=== PATIENT | male | born 1950 | race Caucasian/White ===

== ENCOUNTER 2016-12-30 16:24 | Emergency (ER) | payer OTHER ==
[~2016-12-30] VITALS: Ht 185.4 cm; Wt 156.5 kg
[~2016-12-30 16:24] MED LIST: ASPI325T4 PO; BENA40TA2 PO; CARV25TA2 PO; CELE200C PO; COLE625T2 PO; DILT180C2 PO; ERGO500012 PO; ERGO50002 PO; ESOM40CA PO; EZET1TAB4 PO; FENO145T PO; GLIM4TAB2 PO; HYDR25TA9 PO; ISOS30TA4 PO; LORA10TA68 PO; METF-620 PO; NIAC1000 PO; OMEG1CAP38 PO; OMEP20TA PO; PREG150C PO; SITA100T PO
[2016-12-30] MEDS ORDERED: IV NORMAL SALINE 1000ML BAG 1,000 ML IV ONE (16:45)
[2016-12-30 16:49] LABS: BASO # 0.1 x10^3/uL (0.0-0.2); BASO % 1 % (0-3); EOS % 4 % (0-3); HEMATOCRIT 37.8 % (39.0-53.0); HEMOGLOBIN 12.7 g/dL (13.0-17.5); LYMPH # 1.8 x10^3/uL (1.0-4.8); LYMPH % 25 % (24-48); MEAN CORPUSCULAR HEMOGLOBIN 29 pg (25-35); MEAN CORPUSCULAR HGB CONC 34 g/dL (31-37); MEAN CORPUSCULAR VOLUME 85 fL (79-100); MONO % 14 % (0-9); NEUT % 56 % (31-73); PLATELET COUNT 219 x10^3/uL (140-400); RED BLOOD COUNT 4.46 x10^6/uL (4.30-5.70); RED CELL DISTRIBUTION WIDTH 15.6 % (11.5-14.5); WHITE BLOOD COUNT 7.1 x10^3/uL (4.0-11.0)
--- NOTE | 2016-12-30 16:52 | PHYS DOC ---
Past Medical History Past Medical History: A-Fib, Diabetes-Type II, GERD, High Cholesterol, Hypertension Past Surgical History: Other Additional Past Surgical Histo: CARDIAC ABLASION Alcohol Use: Heavy Drug Use: None Adult General Chief Complaint Chief Complaint: LOWER EXTREMITY SWELLING [facility] HPI Patient is a 66 year old male who presents with right lower extremity cellulitis and swelling. Patient had a history of right lower extremity cellulitis. Patient has described low-grade temps for the past 2 days. Patient denies any nausea or vomiting. Patient denies any history of blood clots. Patient is diabetic. Patient denies any numbness or tingling to the right lower family. She has no other complaints. Pertinent physical exam findings: Right lower extremity: Erythema and +2 pitting edema and swelling with positive dorsal pedis pulse ED Course: CBC, CMP, BC, Lactic acid 1827: Patient reevaluated and discussed lab results of the patient's who states that he gets cellulitis very often of his lower extremity secondary to swelling and this time came in early to initiate treatment. Patient states he would like to go home and does not want admitted to the hospital. Patient states Keimelda has worked from the past. Patient will follow up with PCP. Patient understands all risks of going home including and disability. Strict return precautions were given to the patient. ED decision making: After reviewing the chart, CC/HPI/PMH, PE, Lab results I do not with the patient is septic from the possible infection on the right lower extremity. I do not know if his erythema and swelling is diffuse cellulitis or stasis dermatitis however given the patient's significant history of cellulitis to that leg will go ahead and start the patient on antibiotics. Recommend short- term follow-up with PCP in one to 2 days. Patient is comfortable going home. Understands all risks of going home. Additional verbal discharge instructions were provided to the patient and that if symptoms get worse or any new symptoms arise that are worrisome to the patient he is to return to emergency room immediately. Review of Systems Review of Systems Constitutional: Denies fever or chills [] Eyes: Denies change in visual acuity, redness, or eye pain [] HENT: Denies nasal congestion or sore throat [] Respiratory: Denies cough or shortness of breath [] Cardiovascular: No additional information not addressed in HPI [] GI: Denies abdominal pain, nausea, vomiting, bloody stools or diarrhea [] : Denies dysuria or hematuria [] Musculoskeletal: Denies back pain or joint pain [] Integument: Cellulitis the right lower extremity Neurologic: Denies headache, focal weakness or sensory changes [] Current Medications Current Medications Current Medications Medications (Trade) Dose Ordered Sig/Nayeli Start Time Stop Time Status Last Admin Dose Admin Sodium Chloride 1,000 ml @ 1,000 mls/hr 1X ONCE 12/30/16 16:45 12/30/16 17:44 DC 12/30/16 16:42 1,000 MLS/HR Allergies Allergies Allergies Coded Allergies Type Severity Reaction Last Updated Verified No Known Drug Allergies 08/09/14 No Physical Exam Physical Exam Constitutional: Well developed, well nourished, no acute distress, non-toxic appearance. [] HENT: Normocephalic, atraumatic, bilateral external ears normal, oropharynx moist, no oral exudates, nose normal. [] Eyes: PERRLA, EOMI, conjunctiva normal, no discharge. [] Neck: Normal range of motion, no tenderness, supple, no stridor. [] Cardiovascular:Heart rate regular rhythm, no murmur [] Lungs & Thorax: Bilateral breath sounds clear to auscultation [] Abdomen: Bowel sounds normal, soft, no tenderness, no masses, no pulsatile masses. [] Skin: Erythema and warmth to the right lower extremities with +2 pitting edema. Patient's good dorsal pedis pulse on the right. Back: No tenderness, no CVA tenderness. [] Extremities: No tenderness, no cyanosis, no clubbing, ROM intact, no edema. [] Neurologic: Alert and oriented X 3, Psychologic: Affect normal, judgement normal, mood normal. [] Current Patient Data Vital Signs Vital Signs Date Time Temp Pulse Resp B/P (MAP) Pulse Ox O2 Delivery O2 Flow Rate FiO2 12/30/16 17:39 56 21 159/77 (104) 97 Room Air 12/30/16 16:46 98.3 98.3 Lab Values Laboratory Tests Test 12/30/16 16:40 White Blood Count 7.1 x10^3/uL (4.0-11.0) Red Blood Count 4.46 x10^6/uL (4.30-5.70) Hemoglobin 12.7 g/dL (13.0-17.5) L Hematocrit 37.8 % (39.0-53.0) L Mean Corpuscular Volume 85 fL (79-100) Mean Corpuscular Hemoglobin 29 pg (25-35) Mean Corpuscular Hemoglobin Concent 34 g/dL (31-37) Red Cell Distribution Width 15.6 % (11.5-14.5) H Platelet Count 219 x10^3/uL (140-400) Neutrophils (%) (Auto) 56 % (31-73) Lymphocytes (%) (Auto) 25 % (24-48) Monocytes (%) (Auto) 14 % (0-9) H Eosinophils (%) (Auto) 4 % (0-3) H Basophils (%) (Auto) 1 % (0-3) Neutrophils # (Auto) 4.0 x10^3uL (1.8-7.7) Lymphocytes # (Auto) 1.8 x10^3/uL (1.0-4.8) Monocytes # (Auto) 1.0 x10^3/uL (0.0-1.1) Eosinophils # (Auto) 0.3 x10^3/uL (0.0-0.7) Basophils # (Auto) 0.1 x10^3/uL (0.0-0.2) Sodium Level 141 mmol/L (136-145) Potassium Level 3.8 mmol/L (3.5-5.1) Chloride Level 106 mmol/L (98-107) Carbon Dioxide Level 29 mmol/L (21-32) Anion Gap 6 (6-14) Blood Urea Nitrogen 20 mg/dL (8-26) Creatinine 1.1 mg/dL (0.7-1.3) Estimated GFR (Cockcroft-Gault) 67.2 BUN/Creatinine Ratio 18 (6-20) Glucose Level 102 mg/dL (70-99) H Lactic Acid Level 1.3 mmol/L (0.4-2.0) Calcium Level 9.1 mg/dL (8.5-10.1) Total Bilirubin 0.5 mg/dL (0.2-1.0) Aspartate Amino Transferase (AST) 15 U/L (15-37) Alanine Aminotransferase (ALT) 22 U/L (16-63) Alkaline Phosphatase 42 U/L (46-116) L Total Protein 7.1 g/dL (6.4-8.2) Albumin 3.1 g/dL (3.4-5.0) L Albumin/Globulin Ratio 0.8 (1.0-1.7) L Laboratory Tests 12/30/16 16:40 Laboratory Tests 12/30/16 16:40 EKG EKG [] Radiology/Procedures Radiology/Procedures [] Course & Med Decision Making Course & Med Decision Making Pertinent Labs and Imaging studies reviewed. (See chart for details) [] Dragon Disclaimer Dragon Disclaimer This electronic medical record was generated, in whole or in part, using a voice recognition dictation system. Departure Departure Impression: Primary Impression: Cellulitis Additional Impression: Leg edema Disposition: HOME, SELF-CARE Condition: GOOD Referrals: PRASANNA ETIENNE MD (PCP) Patient Instructions: Cellulitis Scripts Cephalexin (KEFLEX) 250 Mg Capsule 1 CAP PO TID for 10 Days, #30 CAP Prov: JENNIFER MAZARIEGOS DO 12/30/16 Problem Qualifiers Primary Impression: Cellulitis Site of cellulitis: extremity Site of cellulitis of extremity: lower extremity Laterality: right Qualified Codes: L03.115 - Cellulitis of right lower limb Additional Impression: Leg edema Laterality: right Qualified Codes: R60.0 - Localized edema JENNIFER MAZARIEGOS DO December 30, 2016 16:51
[2016-12-30 17:01] LABS: CALCIUM 9.1 mg/dL (8.5-10.1); CREATININE 1.1 mg/dL (0.7-1.3); GFR 67.2; POTASSIUM 3.8 mmol/L (3.5-5.1)
[2016-12-30 17:07] LABS: ALBUMIN 3.1 g/dL (3.4-5.0); ALBUMIN/GLOBULIN RATIO 0.8 (1.0-1.7); TOTAL BILIRUBIN 0.5 mg/dL (0.2-1.0); TOTAL PROTEIN 7.1 g/dL (6.4-8.2)
[2016-12-30 17:39] VITALS: BP 159/77
[2016-12-30] MEDS ORDERED: CEPH-263 PO (18:33)
== END 2016-12-30 18:46 | disposition home or self-care (01) ==
LOC: ER 16:24
DX: L03.115 Cellulitis of right lower limb (principal); R60.0 Localized edema; E11.9 Type 2 diabetes mellitus without complications; E78.00 Pure hypercholesterolemia, unspecified; I10 Essential (primary) hypertension; K21.9 Gastro-esophageal reflux disease without esophagitis; I48.91 Unspecified atrial fibrillation
CPT/HCPCS: 36415; 80053; 83605; 85027; 87040; 96360; 99284; J7030

== ENCOUNTER 2017-05-07 08:17 | Emergency (ER) | payer OTHER ==
[~2017-05-07] VITALS: Ht 185.4 cm; Wt 156.5 kg
[~2017-05-07 08:17] MED LIST changes: -ASPI325T4 PO; +ASPI325T8 PO; +CEPH-263 PO; +COLE625T12 PO; -COLE625T2 PO; -ERGO500012 PO; +ERGO500027 PO; +EZET1TAB30 PO; -EZET1TAB4 PO; -OMEP20TA PO; +OMEP20TA8 PO
--- NOTE | 2017-05-07 09:21 | EKG ---
[facility] [address] [place] [address] Test Date: 2017-05-07 Test Time: 09:13:44 Pat Name: SRIDHAR CASILLAS Department: Room: Gender: M Shift Engineer: : 1950 Requested By: JORDAN ALANIS Order Number: [id number] Reading MD: Hero Bee Measurements Intervals Pierce Rate: 109 P: HI: QRS: -108 QRSD: 92 T: -6 QT: 348 QTc: 470 Interpretive Statements ATRIAL FIBRILLATION WITH CONTROLLED VENTRICULAR RESPONSE NON-SPECIFIC ST/T CHANGES Electronically Signed On 05-09-2017 13:11:46 CDT by Hero Bee
[2017-05-07] MEDS ORDERED: ONDANSETRON PF 4 MG/2 ML VIAL. IV ONE (09:30)
[2017-05-07 09:47] LABS: BASO % 0 % (0-3); CALCIUM 8.6 mg/dL (8.5-10.1); CREATININE 1.5 mg/dL (0.7-1.3); EOS % 0 % (0-3); HEMATOCRIT 38.5 % (39.0-53.0); HEMOGLOBIN 13.1 g/dL (13.0-17.5); LYMPH # 1.1 x10^3/uL (1.0-4.8); LYMPH % 10 % (24-48); MEAN CORPUSCULAR HEMOGLOBIN 29 pg (25-35); MEAN CORPUSCULAR HGB CONC 34 g/dL (31-37); MEAN CORPUSCULAR VOLUME 84 fL (79-100); MONO % 11 % (0-9); NEUT % 79 % (31-73); PLATELET COUNT 218 x10^3/uL (140-400); RED BLOOD COUNT 4.58 x10^6/uL (4.30-5.70); RED CELL DISTRIBUTION WIDTH 15.7 % (11.5-14.5); WHITE BLOOD COUNT 10.8 x10^3/uL (4.0-11.0)
[2017-05-07 09:53] LABS: ALBUMIN 3.1 g/dL (3.4-5.0); ALBUMIN/GLOBULIN RATIO 0.9 (1.0-1.7); TOTAL BILIRUBIN 1.5 mg/dL (0.2-1.0); TOTAL PROTEIN 6.7 g/dL (6.4-8.2)
--- NOTE | 2017-05-07 10:45 | PHYS DOC ---
Past Medical History Past Medical History: A-Fib, Diabetes-Type II, GERD, High Cholesterol, Hypertension Past Surgical History: Other Additional Past Surgical Histo: CARDIAC ABLATION Additional Information: Occasional cigar. Alcohol Use: Heavy Drug Use: None Adult General Chief Complaint Chief Complaint: ABDOMINAL PAIN HPI HPI Patient is a 66 year old male with history of A. fib, GERD sounds with epigastric pain nausea and vomiting for the past 2 days. Patient last vomited yesterday. Patient also reports left lower quadrant pain, tenderness. Denies diarrhea or constipation. Reports subjective fever and feeling clammy. No chills. No chest pain, shortness breath, palpitations, flank pain, urinary frequency urgency. No increased leg pain or swelling. No other acute symptoms or complaints. Previous abdominal hernia repair. No other prior abdominal surgeries. Patient's accompanied at bedside by spouse. Patient's PCP is Dr. Montrell Leger. Review of Systems Review of Systems ROS as per HPI. All other ROS are negative. Current Medications Current Medications Current Medications Medications (Trade) Dose Ordered Sig/Nayeli Start Time Stop Time Status Last Admin Dose Admin Iohexol (Omnipaque 300 Mg/ml) 60 ml 1X ONCE 05/07/17 11:45 05/07/17 11:46 DC 05/07/17 11:39 60 ML Ondansetron HCl (Zofran) 4 mg 1X ONCE 05/07/17 09:30 05/07/17 09:31 DC Allergies Allergies Allergies Coded Allergies Type Severity Reaction Last Updated Verified No Known Drug Allergies 08/09/14 No Physical Exam Physical Exam Constitutional: Well developed, well nourished, fatigued and unwell appearing. [ ] HENT: Normocephalic, atraumatic, bilateral external ears normal, oropharynx moist, no oral exudates, nose normal. [] Eyes: PERRLA, EOMI, conjunctiva normal, no discharge. [] Neck: Normal range of motion, no tenderness, supple, no stridor. [] Cardiovascular: Tachycardic, regular rhythm[] Lungs & Thorax: Bilateral breath sounds clear to auscultation [] Abdomen: Bowel sounds normal, soft, body habitus limiting exam. [] Skin: Warm, dry, no erythema, no rash. [] Back: No tenderness, no CVA tenderness. [] Extremities: No tenderness, no edema. [] Neurologic: Alert and oriented X 3, normal motor function, normal sensory function, no focal deficits noted. [] Psychologic: Affect normal, judgement normal, mood normal. [] Current Patient Data Vital Signs Vital Signs Date Time Temp Pulse Resp B/P (MAP) Pulse Ox O2 Delivery O2 Flow Rate FiO2 05/07/17 12:25 98 18 125/76 (92) 94 Room Air 05/07/17 09:00 97.2 97.2 Lab Values Laboratory Tests Test 05/07/17 09:25 05/07/17 11:05 White Blood Count 10.8 x10^3/uL (4.0-11.0) Red Blood Count 4.58 x10^6/uL (4.30-5.70) Hemoglobin 13.1 g/dL (13.0-17.5) Hematocrit 38.5 % (39.0-53.0) L Mean Corpuscular Volume 84 fL (79-100) Mean Corpuscular Hemoglobin 29 pg (25-35) Mean Corpuscular Hemoglobin Concent 34 g/dL (31-37) Red Cell Distribution Width 15.7 % (11.5-14.5) H Platelet Count 218 x10^3/uL (140-400) Neutrophils (%) (Auto) 79 % (31-73) H Lymphocytes (%) (Auto) 10 % (24-48) L Monocytes (%) (Auto) 11 % (0-9) H Eosinophils (%) (Auto) 0 % (0-3) Basophils (%) (Auto) 0 % (0-3) Neutrophils # (Auto) 8.5 x10^3uL (1.8-7.7) H Lymphocytes # (Auto) 1.1 x10^3/uL (1.0-4.8) Monocytes # (Auto) 1.1 x10^3/uL (0.0-1.1) Eosinophils # (Auto) 0.0 x10^3/uL (0.0-0.7) Basophils # (Auto) 0.0 x10^3/uL (0.0-0.2) Prothrombin Time 19.3 SEC (11.7-14.0) H Prothrombin Time INR 1.7 (0.8-1.1) H Sodium Level 137 mmol/L (136-145) Potassium Level 3.0 mmol/L (3.5-5.1) L Chloride Level 97 mmol/L (98-107) L Carbon Dioxide Level 30 mmol/L (21-32) Anion Gap 10 (6-14) Blood Urea Nitrogen 21 mg/dL (8-26) Creatinine 1.5 mg/dL (0.7-1.3) H Estimated GFR (Cockcroft-Gault) 47.0 BUN/Creatinine Ratio 14 (6-20) Glucose Level 199 mg/dL (70-99) H Calcium Level 8.6 mg/dL (8.5-10.1) Total Bilirubin 1.5 mg/dL (0.2-1.0) H Aspartate Amino Transferase (AST) 12 U/L (15-37) L Alanine Aminotransferase (ALT) 23 U/L (16-63) Alkaline Phosphatase 67 U/L (46-116) Troponin I Quantitative < 0.017 ng/mL (0.000-0.055) IP-Abm-N-Type Natriuretic Peptide 848 pg/mL (0-124) H Total Protein 6.7 g/dL (6.4-8.2) Albumin 3.1 g/dL (3.4-5.0) L Albumin/Globulin Ratio 0.9 (1.0-1.7) L Lipase 112 U/L (73-393) Urine Collection Type Void Urine Color Yellow Urine Clarity Clear Urine pH 6.0 Urine Specific Gwynn 1.025 Urine Protein Negative mg/dL (NEG-TRACE) Urine Glucose (UA) Negative mg/dL (NEG) Urine Ketones (Stick) Negative mg/dL (NEG) Urine Blood Negative (NEG) Urine Nitrite Negative (NEG) Urine Bilirubin Small (NEG) Urine Urobilinogen Dipstick 0.2 mg/dL (0.2 mg/dL) Urine Leukocyte Esterase Negative (NEG) Urine RBC 0 /HPF (0-2) Urine WBC 0 /HPF (0-4) Urine Squamous Epithelial Cells Few /LPF Urine Bacteria 0 /HPF (0-FEW) Urine Mucus Mod /LPF Laboratory Tests 05/07/17 09:25 Laboratory Tests 05/07/17 09:25 EKG EKG [EKG: afib rate 119, QTC 470. Interpretation by this`] Radiology/Procedures Radiology/Procedures [CT abdomen pelvis: 3 mm stone at left UPJ with mild to moderate hydroureter and stranding per radiology report] Course & Med Decision Making Course & Med Decision Making Pertinent Labs and Imaging studies reviewed. (See chart for details) [Patient with A. fib, RVR assured. Acute left-sided kidney stone with mild hydroureter and hydronephrosis. Patient is also hypokalemic. Patient is currently on anticoagulation therapy. He is reviewed with Dr. Roa. Recommendations are for transfer to [facility] for definitive urologic care and EP evaluation. Patient except by Dr. Sam at [facility] at 1400.] Dragon Disclaimer Dragon Disclaimer This electronic medical record was generated, in whole or in part, using a voice recognition dictation system. Departure Departure Impression: Primary Impression: Atrial fibrillation with RVR Additional Impression: Ureteral calculus Disposition: 02 TRANSFER [facility] Condition: STABLE Referrals: Arturo LEGER MD (PCP) Problem Qualifiers JORDAN ALANIS DO May 07, 2017 10:45
[2017-05-07 10:59] LABS: INR 1.7 (0.8-1.1); PROTHROMBIN TIME PATIENT 19.3 SEC (11.7-14.0)
[2017-05-07 11:31] LABS: BILIRUBIN,URINE SMALL (NEG); GLUCOSE,URINE NEGATIVE (NEG); NITRITE,URINE NEGATIVE (NEG); PROTEIN,URINE NEGATIVE (NEG-TRACE); UROBILINOGEN,URINE 0.2 mg/dL (0.2 mg/dL)
[2017-05-07] MEDS ORDERED: IOHEXOL 300 MG/ML 75 ML VIAL IV ONE (11:45)
[2017-05-07 11:46] LABS: BACTERIA,URINE 0 /HPF (0-FEW); RBC,URINE 0 /HPF (0-2); SQUAMOUS EPITHELIAL CELL,UR FEW /LPF; WBC,URINE 0 /HPF (0-4)
--- NOTE | 2017-05-07 12:00 | RAD ---
CT abdomen/pelvis with contrast 05/07/2017 1132 hours Indication: Left lower quadrant abdominal pain with vomiting. Comparison: None available Technique: Multiple axial CT images of the abdomen and pelvis were obtained after the administration of 60 mL Omnipaque intravenously. Coronal and sagittal reformats are provided. Findings: There is subsegmental atelectasis of the left lung base. Heart size is borderline enlarged. There is hypoattenuation of the hepatic parenchyma suggestive of diffuse hepatic steatosis. There is a 11 mm cyst in the medial left hepatic lobe, segment II. Spleen, bilateral adrenal glands, and pancreas are within normal limits. Calcific gallstones are identified within the gallbladder. Abdominal aorta is normal in course and caliber with scattered atherosclerotic desiccation. There are no pathologically enlarged lymph nodes in the abdomen or pelvis. There is no free intraperitoneal air or free fluid. Kidneys are symmetric in size. There is mild to moderate left hydroureteronephrosis with a 3 mm calculus at the left ureteropelvic junction. There is a 5 mm nonobstructing calculus in the middle pole the left kidney. There is a 1 mm calculus in the inferior pole of the left kidney. There is mild left perinephric stranding. Urinary bladder is within normal limits. Prostate and seminal vesicles are present. Small and large bowel are normal in caliber without evidence for bowel obstruction. There is a umbilical hernia containing predominant fat. No suspicious osseous lesions are identified. Impression: 1. There is a 3 mm calculus at the left ureteropelvic junction resulting in mild to moderate left hydroureteronephrosis with mild perinephric stranding. 2. There are nonobstructing calculi in the left kidney measuring up to 5 mm. 3. There is suggestion of hepatic steatosis. 4. Small umbilical hernia containing fat. 5. Cholelithiasis. PQRS Compliance Statement: One or more of the following individualized dose reduction techniques were utilized for this examination: 1. Automated exposure control 2. Adjustment of the mA and/or kV according to patient size 3. Use of iterative reconstruction technique
[2017-05-07] MEDS ORDERED: POTASSIUM CHLORIDE 20 MEQ TABLET.ER. PO ONE (13:15)
[2017-05-07] MEDS ORDERED: SOTA80TA48 PO (14:23)
[2017-05-07] MEDS ORDERED: RIVA10TA PO (14:23)
[2017-05-07] MEDS ORDERED: CETI10CA PO (14:28)
[2017-05-07] MEDS ORDERED: AMLO10TA2 PO (14:29)
[2017-05-07] MEDS ORDERED: ATOR10TA60 PO (14:29)
[2017-05-07 15:00] VITALS: BP 117/65
== END 2017-05-07 15:09 | disposition short-term general hospital (02) ==
LOC: ER 08:17 → 2 NORTH 13:00 → UNDOADMIN 13:00 → ER 15:09
DX: N20.1 Calculus of ureter (principal); I48.0 Paroxysmal atrial fibrillation; E11.9 Type 2 diabetes mellitus without complications; E78.00 Pure hypercholesterolemia, unspecified; I10 Essential (primary) hypertension; K21.9 Gastro-esophageal reflux disease without esophagitis; F17.210 Nicotine dependence, cigarettes, uncomplicated; F10.10 Alcohol abuse, uncomplicated
CPT/HCPCS: 36415; 74177; 80053; 81001; 83690; 83880; 84484; 85025; 85610; 93005; 99285; Q9967

== ENCOUNTER → 2018-12-22 | Outpatient (CLI) | payer OTHER ==
[~2018-12-22] MED LIST changes: +AMLO10TA8 PO; +ATOR10TA60 PO; -BENA40TA2 PO; +BENA40TA3 PO; +CETI10CA PO; +HYDR-2145 PO; -HYDR25TA9 PO; -METF-620 PO; +METF10007 PO; +RIVA10TA PO; +SOTA80TA48 PO
--- NOTE | 2018-12-22 12:26 | RAD ---
Left leg venous Doppler study: Clinical indications: Left leg swelling and pain. Findings: Duplex sonography (including noriega scale evaluation and color flow and waveform spectral analysis) of the proximal aspect of the greater saphenous vein and the proximal aspect of the profunda femoral vein and the entire length of the common femoral and superficial femoral and popliteal veins and the tibioperoneal trunk and the proximal aspect of the posterior tibial and peroneal veins of the left leg was performed. Normal compressibility, augmentation of color Doppler flow after calf compression, and respiratory variation of Doppler flow is seen. Thus, there are no sonographic findings of deep venous thrombosis within these veins. Impression: There are no sonographic findings of deep venous thrombosis within the veins discussed above of the left lower extremity. Electronically signed by: Chele Lobo MD (12/22/2018 12:24 PM) [id number]
--- NOTE | 2018-12-22 17:01 | RAD ---
Left lower extremity arterial ultrasound History: Left leg pain and swelling Findings: Multiple grayscale, color, and duplex spectral analysis sonographic images were acquired of the left lower extremity arteries. There are somewhat diffusely elevated velocities such as from the left common femoral artery to the popliteal artery. There is no demonstrable plaque although suboptimal visualization of the vessels due to patient's body habitus. There are triphasic and biphasic waveforms of the left lower extremity arteries. No focal vessel occlusion is demonstrated. There is some scattered plaque. Velocities in cm/sec: Common femoral artery 193 Profunda femoris artery 95 Proximal SFA 203 Mid SFA 134 Distal SFA 166 Popliteal artery 161 Posterior tibial artery 66 proximally and 146 distally Peroneal artery 84 Anterior tibial artery 89 Dorsalis pedis artery 127 Impression: 1. No focal vessel occlusion is demonstrated. There is some scattered plaque. No significant focal stenosis is demonstrated. There are somewhat diffusely elevated velocities of the left lower extremity arteries. Electronically signed by: Robe Moore MD (12/22/2018 4:58 PM) [id number]
== END | disposition home or self-care (01) ==
LOC: US 11:32
PROVIDERS: ATTEND Family Medicine
DX: L03.116 Cellulitis of left lower limb (principal)
CPT/HCPCS: 93926; 93971

== ENCOUNTER → 2020-07-07 | Outpatient (CLI) | payer MEDICARE ==
[~2020-07-07] MED LIST changes: +AMLO-187 PO; -AMLO10TA8 PO; -GLIM4TAB2 PO; +GLIM4TAB8 PO; +INSU100I32 SQ; +MAGN200T7 PO; +MULT1CAP15 PO; +OMEP20CA16 PO; +POTA20TA4 PO; +SPIR25TA5 PO
== END ==
LOC: LAB 14:28
PROVIDERS: ATTEND Internal Medicine Gastroenterology
DX: Z01.812 Encounter for preprocedural laboratory examination (principal); Z20.828 Contact with and (suspected) exposure to other viral communicable diseases
CPT/HCPCS: U0003

== ENCOUNTER → 2020-07-10 | Day surgery (SDC) | payer MEDICARE ==
[~2020-07-10] MED LIST changes: +BARIUM SULFATE 96% 397 GM ENEMA. PR ONE; +IV RINGERS,LACTATED 1000ML 1,000 ML IV SCH; +LIDOCAINE 2% PF 5 ML VIAL. ONE; +PROPOFOL 10 MG/ML (20ML) VIAL. IV ONE
[2020-07-10 12:08] VITALS: BP 122/59
--- NOTE | 2020-07-10 17:19 | RAD ---
Single contrast barium enema. INDICATION: Incomplete colonoscopy. COMPARISON: Abdomen pelvis CT with IV contrast of 05/07/2017 TECHNIQUE: Following acquisition and review of a marine fisheries technician image, barium contrast material was administered by rectum and multiple fluoroscopic images were acquired of the distended large bowel. Pre and postevacuation images were acquired and a total of 30 images were acquired. Total of 1.5 minutes of fluoroscopy time was utilized. FINDINGS: The marine fisheries technician image shows no evidence of free intraperitoneal air. There is a large amount of residual intraluminal gas from recent attempted lower endoscopy. The patient is of large body habitus and required numerous images for adequate anatomic coverage. No large polyp, mass or stricture was observed in the large bowel with opacification of the large bowel achieved to the cecum. The appendix did not fill. Small filling defects in the mid and distal transverse colons were identified (images 18 and 25), compatible with sessile polyps. IMPRESSION: Single contrast barium enema demonstrating two polyps in the mid transverse colon as described. No stricture, mass or other colonic abnormalities identified. Electronically signed by: Zee Fowler MD (07/10/2020 5:16 PM) [id number]
== END | disposition home or self-care (01) ==
LOC: ENDOS 09:07
PROVIDERS: ATTEND Internal Medicine Gastroenterology
DX: R19.5 Other fecal abnormalities (principal); K63.5 Polyp of colon; K64.0 First degree hemorrhoids; I10 Essential (primary) hypertension; I48.91 Unspecified atrial fibrillation; E78.00 Pure hypercholesterolemia, unspecified; G47.30 Sleep apnea, unspecified; K21.9 Gastro-esophageal reflux disease without esophagitis; E66.9 Obesity, unspecified; E11.9 Type 2 diabetes mellitus without complications; M19.90 Unspecified osteoarthritis, unspecified site; F17.210 Nicotine dependence, cigarettes, uncomplicated; Z79.899 Other long term (current) drug therapy; Z98.890 Other specified postprocedural states; Z79.4 Long term (current) use of insulin; Z72.89 Other problems related to lifestyle
CPT/HCPCS: 45378; 74270; J2704; 45330

== ENCOUNTER → 2020-07-29 | Outpatient (CLI) | payer MEDICARE ==
[2020-07-10 12:08] VITALS: BP 122/59
[~2020-07-29] MED LIST changes: -BARIUM SULFATE 96% 397 GM ENEMA. PR ONE; -IV RINGERS,LACTATED 1000ML 1,000 ML IV SCH; -LIDOCAINE 2% PF 5 ML VIAL. ONE; -PROPOFOL 10 MG/ML (20ML) VIAL. IV ONE
== END ==
LOC: LAB 13:12
PROVIDERS: ATTEND Internal Medicine Gastroenterology
DX: Z01.812 Encounter for preprocedural laboratory examination (principal); Z20.828 Contact with and (suspected) exposure to other viral communicable diseases
CPT/HCPCS: U0003

== ENCOUNTER → 2020-08-01 | Day surgery (SDC) | payer MEDICARE ==
[~2020-08-01] MED LIST changes: +IV RINGERS,LACTATED 1000ML 1,000 ML IV SCH; +LIDOCAINE 2% PF 5 ML VIAL. ONE; +PROPOFOL 10 MG/ML (20ML) VIAL. IV ONE
[2020-08-01 09:22] VITALS: BP 109/53
--- NOTE | 2020-08-05 09:19 | PATHOLOGY ---
[facility] Accession Number: [id number] . 01 Material submitted: . PART A: rectum - RECTAL POLYP PART B: colon - TRANSVERSE COLON POLYP. Modifiers: transverse PART C: colon - ASCENDING COLON POLYP. Modifiers: ascending . 01 Clinical history: . HX POLYPS . 02 Diagnosis: A. Colorectal biopsy, rectal polyp: - Tubular adenoma. . B. Colon biopsies, transverse colon polyps: - Tubular adenomas, multiple. . C. Colon biopsies, ascending colon polyps: - Tubular adenomas. . (JPM:garageman; 08/04/2020) MBR 08/04/2020 1647 Local . 02 Comment: There is no high-grade dysplasia or evidence of malignancy. (JPM:garageman; 08/04/2020) . 02 Electronically signed: . Darren Lima MD, Pathologist NPI- [id number] . 01 Gross description: . A. The specimen is received in formalin, labeled "Suhas Ras, rectal polyp". Received is a segment of pale whitmore soft tissue measuring 0.6 cm in maximum dimensions. The specimen is submitted entirely in cassette A1. . B. The specimen is received in formalin, labeled "Suhas Ras, transverse colon polyp". Received are multiple segments of pale whitmore soft tissue ranging in size from 0.1 to 0.4 cm in maximum dimensions. The specimen is submitted entirely in cassette B1. . C. The specimen is received in formalin, labeled "Suhas Ras, ascending colon polyps". Received are multiple segments of pale whitmore soft tissue ranging in size from 0.3 to 1.0 cm in maximum dimensions. The specimen is submitted entirely in cassette C1 and C2. (CAA; 08/02/2020) QAC/QAC 08/02/2020 1855 Local . 02 Pathologist provided ICD-10: D12.8, D12.3, D12.2 . 02 CPT . 764662, 567442, 065380 Specimen Comment: A courtesy copy of this report has been sent to [phone] Specimen Comment: Report sent to Performed at: 01 [facility] [address] [facility] [address], [place] [id number] MD Mars Lema MD Phone: [phone] Performed at: 02 [facility] [address], [place] [id number] MD Darren Lima MD Phone: [phone]
== END | disposition home or self-care (01) ==
LOC: ENDOS 06:55
PROVIDERS: ATTEND Internal Medicine Gastroenterology
DX: Z12.11 Encounter for screening for malignant neoplasm of colon (principal); D12.8 Benign neoplasm of rectum; D12.3 Benign neoplasm of transverse colon; D12.2 Benign neoplasm of ascending colon; K63.89 Other specified diseases of intestine; I10 Essential (primary) hypertension; E78.00 Pure hypercholesterolemia, unspecified; I48.91 Unspecified atrial fibrillation; G47.30 Sleep apnea, unspecified; K21.9 Gastro-esophageal reflux disease without esophagitis; E66.9 Obesity, unspecified; M19.90 Unspecified osteoarthritis, unspecified site; E11.9 Type 2 diabetes mellitus without complications; F17.210 Nicotine dependence, cigarettes, uncomplicated; Z86.010 Personal history of colon polyps; Z79.84 Long term (current) use of oral hypoglycemic drugs; Z79.899 Other long term (current) drug therapy; Z98.890 Other specified postprocedural states
CPT/HCPCS: 45380; 45385; J2704